=== PATIENT | female | born 1950 | race Caucasian/White ===

== ENCOUNTER 2017-01-14 10:11 | Day surgery (SDC) | payer MEDICARE, OTHER ==
[2017-01-14] MEDS ORDERED: LACTATED RINGERS 1,000 ML IV ONE (10:31)
[2017-01-14] MEDS ORDERED: CYCLOPENTOLATE 1% OPHTH DROPS 2 ML OPTH ONE (10:40)
[2017-01-14] MEDS ORDERED: KETOROLAC 0.45% OPHTH DROPS OPTH ONE (10:40)
[2017-01-14] MEDS ORDERED: TROPICAMIDE 1% OPHTH 2 ML DROPS OPTH ONE (10:40)
[2017-01-14] MEDS ORDERED: MIDAZOLAM 2 MG/2 ML VIAL IVP ONE (11:31)
[2017-01-14] MEDS ORDERED: PROPARACAINE 0.5% OPHTH DROPS 15 ML OPTH ONE (11:37)
[2017-01-14] MEDS ORDERED: BRIMONIDINE 0.2% OPHTH DROPS 5 ML OPTH ONE (11:37)
[2017-01-14] MEDS ORDERED: NEOMYCIN/POLYMYX/DEXAMETH OPHTH OINT OPTH ONE (11:38)
[2017-01-14] MEDS ORDERED: EPINEPHrine 1 MG/ML AMP IO ONE (11:38)
[2017-01-14] MEDS ORDERED: CHONDR SULF/HYALURONATE SYRINGE IO ONE (11:38)
[2017-01-14] MEDS ORDERED: BSS/LIDOCAINE/EPINEPHRINE 1 ML SYRINGE IO ONE (11:38)
[2017-01-14] MEDS ORDERED: levoFLOXacin 0.5% OPHTH DROPS 5 ML OPTH ONE (11:38)
[2017-01-14 12:25] VITALS: BP 149/95
--- NOTE | 2017-01-15 03:35 | OPERATIVE REPORT ---
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 NAME OF PROCEDURE: Phacoemulsification cataract extraction with intraocular lens implant of the right eye, clear corneal lateral approach. SURGEON: Santy Norton MD ANESTHESIA: Topical 0.5% tetracaine with monitored sedation and intracameral Shugarcaine given at the beginning of the surgical procedure. COMPLICATIONS: None. DESCRIPTION OF SURGICAL PROCEDURE: The patient was brought to the OR and, after IV and cardiac leads were placed, the patient was then prepped and draped in the usual ophthalmic manner. An adhesive pl astic drape was placed over the eye, a slit was made in the drape, and topical anesthetic was placed on the eye. A lid speculum was used to separate the eyelids and expose the eye. The eye was held se curely with the Colibri forceps. A Micro-Sharp blade was used to make a self-sealing stab wound 2 o' clock hours to the left of the planned clear corneal incision. Viscoelastic was used to fill the an terior chamber, and a crescent blade was used to make the initial vertical component of the self-seal ing clear corneal incision. A 2.75 keratome was used to complete the incision. A circular tear caps ulorrhexis was performed. The nucleus was hydrodissected, and phacoemulsification of the cataract wa s performed without complication. The I/A unit was used to remove the cortical material from the eye . The posterior capsule was polished crystal clear with the MogiMe capsule polisher, and again the I/ A unit was used to remove any loose particulate matter after polishing the capsule. Viscoelastic was used to inflate the capsular bag. An AcrySof lens was inserted into the capsular bag with the loops left at about the 3 o'clock and 9 o'clock meridians. The I/A unit was used to remove as much Viscoe lastic from the eye as possible. BSS was used to fill the anterior chamber, with the wound found to be self-sealing and water tight. Several drops of Quixin were placed on the eye. The lid speculum w as removed. A drop of brimonidine was placed on the eye. Maxitrol ointment was placed on the eye. The eye was patched and shielded, and the patient was taken to the recovery room in good condition. JOB #: [id number] EXT JOB #:[id number]
== END 2017-01-14 10:12 | disposition home or self-care (01) ==
LOC: SDS 10:11
PROVIDERS: ATTEND Specialist
PROC: 08RJ3JZ Replacement of Right Lens with Synthetic Substitute, Percutaneous Approach (ICD-10-PCS; principal; 2017-01-14 11:15)
DX: H25.811 Combined forms of age-related cataract, right eye (principal); I10 Essential (primary) hypertension
CPT/HCPCS: 66984; J7120; V2632

== ENCOUNTER 2017-05-25 14:07 | Outpatient (CLI) | payer MEDICARE, OTHER ==
[2017-05-25 14:55] LABS: BASOPHILS # (AUTO) 0.1 10^3/uL (0.0-0.1); BASOPHILS % (AUTO) 0.9 %; EOSINOPHILS # (AUTO) 0.3 10^3/uL (0.0-0.7); EOSINOPHILS % (AUTO) 3.7 %; HCT - HEMATOCRIT 38.7 % (37.0-47.0); LYMPHOCYTES # (AUTO) 2.8 10^3/uL (1.5-3.5); LYMPHOCYTES % (AUTO) 39.6 %; MEAN CORPUSCULAR HEMOGLOBIN 30.8 pg (27.0-31.0); MEAN CORPUSCULAR HGB CONC 33.5 g/dL (32.0-36.0); MEAN PLATELET VOLUME 7.3 fL (7.9-10.8); MONOCYTES # (AUTO) 0.4 10^3/uL (0.0-1.0); MONOCYTES % (AUTO) 5.8 %; NEUTROPHILS # (AUTO) 3.5 10^3/uL (1.5-6.6); RED BLOOD COUNT 4.21 10^6/uL (4.20-5.40); RED CELL DISTRIBUTION WIDTH 12.8 % (12.0-15.0)
[2017-05-25 15:01] LABS: BILIRUBIN,URINE NEGATIVE (NEGATIVE)
[2017-05-25 15:08] LABS: UA CHARGE (STRIP ONLY) YES; UR CULTURE IF IND NOT INDICATED
[2017-05-25 15:29] LABS: ALBUMIN/GLOBULIN RATIO 1.4 (1.0-2.2); BUN - BLOOD UREA NITROGEN 9 mg/dL (6-20); CALCIUM 9.6 mg/dL (8.5-10.3); CARBON DIOXIDE - CO2 26 mmol/L (21-32); CHLORIDE 94 mmol/L (101-111); CHOL/HDL RATIO 3.2 (<4.4); CHOLESTEROL 269 mg/dL; CREATININE 0.4 mg/dL (0.4-1.0); GFR - MDRD 160 (>89); GLUCOSE 86 mg/dL (70-100); HDL CHOLESTEROL 85 mg/dL; POTASSIUM 3.9 mmol/L (3.5-5.0); SODIUM 132 mmol/L (135-145); TOTAL PROTEIN 7.7 g/dL (6.7-8.2); TRIGLYCERIDES 81 mg/dL; VLDL CHOLESTEROL 16 mg/dL
[2017-05-25 15:39] LABS: HEMOGLOBIN A1C 0.53 g/dL
== END 2017-05-25 14:08 | disposition home or self-care (01) ==
LOC: LAB 14:07
PROVIDERS: ATTEND Internal Medicine
DX: I10 Essential (primary) hypertension (principal); K57.92 Diverticulitis of intestine, part unspecified, without perforation or abscess without bleeding; R73.01 Impaired fasting glucose; E78.5 Hyperlipidemia, unspecified; M85.80 Other specified disorders of bone density and structure, unspecified site; Z79.899 Other long term (current) drug therapy
CPT/HCPCS: 36415; 80053; 80061; 81001; 81003; 83036; 84443; 85025; 87086

== ENCOUNTER 2017-06-15 09:56 | Outpatient (CLI) | payer MEDICARE, OTHER ==
--- NOTE | 2017-06-16 18:40 | Mammography Report ---
DIGITAL SCREENING MAMMOGRAM: 06/15/2017 CLINICAL INDICATION: A 66-year-old with family history of breast cancer, history of benign biopsy fo r screening. TECHNIQUE: Routine CC and MLO projections were obtained of the breasts. COMPARISON: Films from [place], [place] dated 09/24/2013. FINDINGS: The breasts again demonstrate heterogeneously dense fibroglandular parenchyma bilaterally. Coarse and punctate, typically benign calcifications are present. No suspicious masses, clustered microcalcifications, or regions of architectural distortion are identified. IMPRESSION: BENIGN FINDINGS. RECOMMENDATION: Routine annual screening unless otherwise clinically indicated. BI-RADS category 2, benign findings. STANDARD QUALIFYING STATEMENTS 1. This examination was reviewed with the aid of Computer-Aided Detection (CAD). 2. A negative or benign imaging report should not delay biopsy if clinically suspicious findings are present. Consider surgical consultation if warranted. More than 5% of cancers are not identified by i maging. 3. Dense breasts may obscure an underlying neoplasm. JOB #: [id number] EXT JOB #:[id number]
== END 2017-06-15 09:57 | disposition home or self-care (01) ==
LOC: DI 09:56
PROVIDERS: ATTEND Internal Medicine
DX: Z12.31 Encounter for screening mammogram for malignant neoplasm of breast (principal); Z80.3 Family history of malignant neoplasm of breast
CPT/HCPCS: 77067

== ENCOUNTER 2018-12-11 07:21 | Outpatient (CLI) | payer MEDICARE, OTHER ==
--- NOTE | 2018-12-12 16:52 | MRI Report ---
Reason: SHOULDER JOINT PAIN, LEFT Procedure Date: 12/11/2018 Accession Number: [id number] / [id number] Procedure: MRI - Shoulder LT W/O CPT Code: FULL RESULT: EXAM: LEFT SHOULDER MRI WITHOUT CONTRAST. EXAM DATE: 12/11/2018 08:16 AM. CLINICAL HISTORY: Shoulder joint pain, left. COMPARISON: None. TECHNIQUE: Multiplanar, multisequence T1-weighted and fluid-sensitive sequences of the shoulder without contrast. Other: None. FINDINGS: Acromioclavicular Region: The acromion is type II. AC joint is moderately osteoarthritic. The coracoacromial and coracoclavicular ligaments are intact. Large amount of bursal fluid. Glenohumeral Region: Superior subluxation of the humeral head with respect to the bony glenoid and pseudoarticulation with the undersurface of the acromion. Series 901 image 10. Glenohumeral joint effusion. Numerous loose bodies in the joint. Broad areas of grade IV chondromalacia in the superior half of the glenohumeral joint. Joint capsule appears intact. Bone Marrow: Some marginal arthrosis at the inferior margin of the glenohumeral articulation. No marrow edema or stress reaction, no fractures. Labrum: The labrum is unremarkable on this nonarthrographic study. Musculature/Rotator Cuff: Full thickness tear and proximal retraction of the supraspinatus, infraspinatus and the superior half of the subscapularis. Teres minor is hypertrophic and remains intact. Extensive fatty atrophy of the supraspinatus, infraspinatus and superior half of the subscapularis. Biceps Tendon: Long head of the biceps has subluxed into the medial aspect of the joint, its attachment to the superior glenoid is difficult to assess. Other: The subcutaneous tissues are unremarkable. IMPRESSION: 1. Long-standing full thickness tear with proximal retraction and fatty atrophy of the supraspinatus, infraspinatus and severe 50% of the subscapularis. Resulting superior subluxation of the humeral head with respect to the bony glenoid. Pseudoarticulation with the undersurface of the acromion. Broad areas of grade IV chondromalacia superior half of the glenohumeral joint. Large joint effusion, innumerable small loose bodies. Large amount of fluid in the bursa also noted. 2. Long head of biceps is subluxed into the medial aspect of the joint, attachment point difficult to assess. RADIA
== END 2018-12-11 07:22 | disposition home or self-care (01) ==
LOC: DI 07:21
PROVIDERS: ATTEND Orthopaedic Surgery Sports Medicine
DX: S43.002A Unspecified subluxation of left shoulder joint, initial encounter (principal); M75.102 Unspecified rotator cuff tear or rupture of left shoulder, not specified as traumatic; S43.492A Other sprain of left shoulder joint, initial encounter; M94.212 Chondromalacia, left shoulder; M24.012 Loose body in left shoulder; M25.412 Effusion, left shoulder

== ENCOUNTER 2018-12-24 11:00 | Outpatient (CLI) | payer MEDICARE, OTHER ==
[2018-12-24] MEDS ORDERED: IOTHALAMATE MEGLUMINE 50 ML VIAL ONE ×2 (11:16→11:18)
[2018-12-24] MEDS ORDERED: BUFFERED LIDOCAINE 10 ML SYRINGE ONE (11:19)
[2018-12-24] MEDS ORDERED: TRIAMCINOLONE 40 MG/ML VIAL IM ONE (13:16)
[2018-12-24] MEDS ORDERED: IOTHALAMATE MEGLUMINE 50 ML VIAL IVP ONE (13:16)
[2018-12-24] MEDS ORDERED: ROPIVACAINE 0.2% PF 20 ML AMPULE SUBQ ONE (13:16)
--- NOTE | 2018-12-24 14:34 | XRAY Report ---
Reason: SHOULDER JOINT PAIN,LEFT Procedure Date: 12/24/2018 Accession Number: [id number] / [id number] Procedure: FL - Inj/Aspiration Major Joint CPT Code: FULL RESULT: EXAM: LEFT SHOULDER STEROID INJECTION WITH FLUOROSCOPIC GUIDANCE EXAM DATE: 12/24/2018 12:08 PM. CLINICAL HISTORY: Shoulder joint pain, left. COMPARISON: None. TECHNIQUE: The risks, benefits, and alternatives of the procedure were discussed with the patient. All questions were answered. Written and verbal consent were obtained. The glenohumeral joint was marked under fluoroscopy and prepped and draped in a sterile manner. Local anesthesia was performed with 1% lidocaine. A 22-gauge needle was then inserted into the glenohumeral joint. 5 mL of a solution containing 1 mL of triamcinolone 40 mg, 4 mL ropivacaine 0.05% was then injected. The needle was removed without immediate complication. Other: None. Fluoroscopy Time: 5 seconds. Number of Images: 4. FINDINGS: Bones and joints: No fracture or subluxation. Injection: Fluoroscopic images demonstrate needle placement and contrast in the glenohumeral joint. No contrast extravasation outside of the glenohumeral joint. IMPRESSION: Successful fluoroscopically-guided steroid injection of the shoulder. RADIA
== END 2018-12-24 11:01 | disposition home or self-care (01) ==
LOC: DI 11:00
PROVIDERS: ATTEND Orthopaedic Surgery Sports Medicine
DX: M25.512 Pain in left shoulder (principal)
CPT/HCPCS: 20610; Q9961

== ENCOUNTER 2019-11-02 10:16 | Outpatient (CLI) | payer MEDICARE, OTHER ==
--- NOTE | 2019-11-02 16:36 | XRAY Report ---
Reason: COUGH Procedure Date: 11/02/2019 Accession Number: [id number] / [id number] Procedure: XR - Chest 2 View X-Ray CPT Code: 72156 Final Report FULL RESULT: EXAM: CHEST RADIOGRAPHY EXAM DATE: 11/02/2019 10:41 AM. CLINICAL HISTORY: Cough. COMPARISON: None. TECHNIQUE: 2 views. FINDINGS: Lungs/Pleura: No focal opacities evident. There is a small right pleural effusion, no effusion on the left. No pneumothorax. High lung volumes with increased AP diameter and flattening of diaphragms. Mediastinum: Heart and mediastinal contours are unremarkable. Other: Rib deformities with callus formation identified on the right, prior rib fractures, possibly subacute. Surgical clips are seen in the right neck with bone anchors seen in the right humeral head. IMPRESSION: Small right pleural effusion and right-sided rib fractures with some evidence of healing, possibly subacute trauma. RADIA
== END 2019-11-02 10:17 | disposition home or self-care (01) ==
LOC: DI 10:16
PROVIDERS: ATTEND Internal Medicine
DX: R05 Cough (principal); J90 Pleural effusion, not elsewhere classified
CPT/HCPCS: 71046

== ENCOUNTER 2019-12-05 08:01 | Outpatient (CLI) | payer MEDICARE, OTHER ==
--- NOTE | 2019-12-05 08:23 | XRAY Report ---
Reason: COUGH, PLEURAL EFFUSION Procedure Date: 12/05/2019 Accession Number: [id number] / [id number] Procedure: XR - Chest 2 View X-Ray CPT Code: 80851 Final Report FULL RESULT: EXAM: CHEST RADIOGRAPHY EXAM DATE: 12/05/2019 08:17 AM. CLINICAL HISTORY: COUGH, PLEURAL EFFUSION. COMPARISON: CHEST 2 VIEW 11/02/2019 10:30 AM. TECHNIQUE: 2 views. FINDINGS: Lungs/Pleura: Tiny right pleural effusion and minimal lateral right basilar airspace opacity seen before have resolved. Lungs now are clear. No peribronchial cuffing or interstitial abnormality. No pneumothorax. Mediastinum: Heart and mediastinal contours are unremarkable. Other: Suggestion of prior posterior lateral right eighth rib fracture, as before. Moderate multilevel thoracic degenerative disk disease. Tendon anchors in the right humeral head, as before. IMPRESSION: Lungs are clear. Minimal lateral right basilar airspace opacity and tiny right pleural effusion seen before have resolved. RADIA
== END 2019-12-05 08:02 | disposition home or self-care (01) ==
LOC: DI 08:01
PROVIDERS: ATTEND Internal Medicine
DX: R05 Cough (principal)
CPT/HCPCS: 71046

== ENCOUNTER 2020-02-07 12:09 | Outpatient (CLI) | payer MEDICARE, OTHER ==
--- NOTE | 2020-02-07 12:48 | XRAY Report ---
Reason: CHONDROMALACIA PATELLAE, LEFT KNEE Procedure Date: 02/07/2020 Accession Number: [id number] / [id number] Procedure: XR - Knee 3 View LT CPT Code: Final Report FULL RESULT: PROCEDURE: Knee 3 View LT INDICATIONS: CHONDROMALACIA PATELLAE, LEFT KNEE TECHNIQUE: 3 views of the knee(s) were acquired. COMPARISON: None. FINDINGS: Bones: Moderate right and severe left medial femorotibial compartment narrowing. There are left tricompartmental osteophytes and small right intercondylar osteophytes. Soft tissues: No joint effusion. No suspicious soft tissue calcifications. 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 Reviewed by: Michelle Interiano MD on 02/07/2020 12:47 PM PDT Approved by: Michelle Interiano MD on 02/07/2020 12:47 PM PDT Station ID: [id number]
== END 2020-02-07 12:10 | disposition home or self-care (01) ==
LOC: DI 12:09
PROVIDERS: ATTEND Orthopaedic Surgery
DX: M17.0 Bilateral primary osteoarthritis of knee (principal)

== ENCOUNTER 2020-02-10 10:18 | Outpatient (CLI) | payer MEDICARE, OTHER | END 2020-02-10 10:19 | disposition home or self-care (01) | LOC: DI 10:18 | PROVIDERS: ATTEND Internal Medicine | DX: I11.9 Hypertensive heart disease without heart failure (principal) | CPT/HCPCS: 93306 ==

== ENCOUNTER 2022-02-27 08:00 | Outpatient (CLI) | payer MEDICARE, OTHER ==
[2022-02-27 16:16] LABS: BASOPHILS # (AUTO) 0.1 10^3/uL (0.0-0.1); BASOPHILS % (AUTO) 1.4 %; EOSINOPHILS # (AUTO) 0.1 10^3/uL (0.0-0.7); EOSINOPHILS % (AUTO) 1.8 %; HCT - HEMATOCRIT 41.9 % (37.0-47.0); HGB - HEMOGLOBIN 13.1 g/dL (12.0-16.0); LYMPHOCYTES # (AUTO) 2.1 10^3/uL (1.5-3.5); LYMPHOCYTES % (AUTO) 37.5 %; MEAN CORPUSCULAR HEMOGLOBIN 28.5 pg (27.0-31.0); MEAN CORPUSCULAR HGB CONC 31.3 g/dL (32.0-36.0); MEAN CORPUSCULAR VOLUME 91.1 fL (81.0-99.0); MEAN PLATELET VOLUME 9.8 fL (7.9-10.8); MONOCYTES # (AUTO) 0.5 10^3/uL (0.0-1.0); MONOCYTES % (AUTO) 8.2 %; NEUTROPHILS # (AUTO) 2.8 10^3/uL (1.5-6.6); NEUTROPHILS % (AUTO) 50.9 %; PLT - PLATELET COUNT 264 10^3/uL (130-450); RED CELL DISTRIBUTION WIDTH 13.5 % (12.0-15.0); WHITE BLOOD COUNT 5.6 x10^3/uL (4.8-10.8)
[2022-02-27 16:29] LABS: ALBUMIN 4.8 g/dL (3.2-5.5); ALBUMIN/GLOBULIN RATIO 1.5 (1.0-2.2); ALKALINE PHOSPHATASE 96 IU/L (42-121); ALT ALANINE AMINOTRANSFERASE 17 IU/L (10-60); AST ASPARTATE AMINOTRANSFERASE 24 IU/L (10-42); BILIRUBIN,TOTAL 0.7 mg/dL (0.2-1.0); BUN - BLOOD UREA NITROGEN 10 mg/dL (6-20); CALCIUM 9.9 mg/dL (8.5-10.3); CARBON DIOXIDE - CO2 29 mmol/L (21-32); CHLORIDE 98 mmol/L (101-111); CHOLESTEROL 249 mg/dL; CREATININE 0.6 mg/dL (0.4-1.0); GFR - MDRD 99 (>89); GLUCOSE 98 mg/dL (70-100); HDL CHOLESTEROL 83 mg/dL; LDL CHOLESTEROL,CALCULATED 147 mg/dL; LDL/HDL RATIO 1.8 (<4.4); POTASSIUM 4.6 mmol/L (3.5-5.0); SODIUM 136 mmol/L (135-145); TOTAL PROTEIN 8.1 g/dL (6.7-8.2); TRIGLYCERIDES 94 mg/dL; VLDL CHOLESTEROL 19 mg/dL
[2022-02-27 20:17] LABS: ESTIMATED AVERAGE GLUCOSE 117 mg/dL (70-100); HEMOGLOBIN A1c% 5.7 % (4.27-6.07)
== END 2022-02-27 23:59 | disposition home or self-care (01) ==
LOC: LAB.R 08:00
PROVIDERS: ATTEND Internal Medicine
DX: Z00.00 Encounter for general adult medical examination without abnormal findings (principal); F32.A Depression, unspecified; H40.9 Unspecified glaucoma; E78.5 Hyperlipidemia, unspecified; I10 Essential (primary) hypertension; R73.01 Impaired fasting glucose; M85.80 Other specified disorders of bone density and structure, unspecified site; C80.1 Malignant (primary) neoplasm, unspecified; Z79.899 Other long term (current) drug therapy; I49.3 Ventricular premature depolarization
CPT/HCPCS: 80053; 80061; 83036; 83721; 84443; 85025

== ENCOUNTER 2023-10-15 09:51 | Emergency (ER) | payer MEDICARE, OTHER ==
--- NOTE | 2023-10-15 11:14 | ED Physician Documentation ---
PD HPI HEAD INJURY - Stated complaint Stated Complaint: GLF/HEAD INJ/DIZZY - Chief complaint Chief Complaint: Trauma Hd/Nk - History obtained from History obtained from: Patient - History of Present Illness Mechanism of head injury: Fell Where head injury occurred: Home Timing - onset: Yesterday (she was getting out of car, having just returned from shopping with . She does not remeber why fell. The says he heard her fall as he was on his side of car. He went around to passenger side and pt was awake but confused. This improved after minutes but not fully. Pt still sluggish.) Associated symptoms: AMS, Amnesia (of the fall and the next hour or so of time.), Nausea / vomiting. No: LOC Symptoms worsen with: Palpation (has tender area right parietal and yazidism area. Having increased area of purple eccchymosis today.) Contributing factors: No: Anticoagulated Similar symptoms before: Has not had sx before Review of Systems Constitutional: denies: Fever, Chills Eyes: denies: Loss of vision, Photophobia Neurologic: reports: Headache. denies: Focal weakness, Numbness, Altered mental status PD PAST MEDICAL HISTORY - Past Medical History Past Medical History: Yes Cardiovascular: Hypertension, Murmur Respiratory: None Neuro: Head injury, Other Endocrine/Autoimmune: None GI: Diverticulitis : None HEENT: None Psych: None Musculoskeletal: None Derm: None - Past Surgical History Past Surgical History: Yes General: Colonoscopy, Other Ortho: Knee replacement HEENT: Tracheostomy - Present Medications Home Medications: Ambulatory Orders Medication Instructions Recorded Confirmed Latanoprost/Pf [Latanoprost 0.005% 1 drops OP HS 04/07/22 10/15/23 Eye Drop] amLODIPine [Norvasc] 5 mg PO DAILY 04/07/22 10/15/23 - Allergies Allergies/Adverse Reactions: Allergies Allergy/AdvReac Type Severity Reaction Status Date / Time ampicillin Allergy Rash Verified 10/15/23 10:21 - Social History Does the pt smoke?: No Smoking Status: Never smoker Does the pt drink ETOH?: Yes ETOH Use: Wine Does the pt have substance abuse?: No - Immunizations Immunizations are current?: Yes PD ED PE NORMAL - Vitals Vital signs reviewed: Yes - General General: Alert and oriented X 3, No acute distress, Well developed/nourished - HEENT HEENT: Pharynx benign - Neck Neck: Supple, no meningeal sign, No adenopathy - Cardiac Cardiac: RRR, No murmur - Respiratory Respiratory: No respiratory distress - Neuro Neuro: Alert and oriented X 3, 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, No motor deficit, No sensory deficit, Normal speech, Other Results - Vitals Vitals: Vital Signs - 24 hr 10/15/23 10/15/23 10/15/23 10:13 12:21 13:38 Temperature 36.0 C L Heart Rate 79 78 90 Respiratory 17 13 21 Rate Blood Pressure 139/98 H 121/92 H 129/81 H O2 Saturation 99 95 98 10/15/23 13:58 Temperature Heart Rate 88 Respiratory 15 Rate Blood Pressure 129/81 H O2 Saturation 95 Oxygen O2 Source Room air - Rads (name of study) head CT Relevant Findings:: Prelim report reviewed, EMP independent interpretation of test PD Medical Decision Making - ED course Complexity details: reviewed results (no ICH nor acute process. Her story was of striking head during a fall and having ARELLANO and some blurred visoion. The concern would be acute bleed, so got CT head. This was without acute findings. ), considered differential (fell and struck head. Confused feeling and headache, wants to be sure no serious injuries. Her symptoms certainly can be c/w concussion. ), d/w patient, d/w family (spouse) Departure - Departure Disposition: 01 Home, Self Care Clinical Impression: Scalp contusion, Concussion Condition: Stable Record reviewed to determine appropriate education?: Yes Instructions: ED Concussion Follow-Up: France Dutta MD [Primary Care Provider] - Comments: Stay well-hydrated. Continue usual medicines. Your head CT scan does not show any signs of bleeding nor any localized swelling, mass effect or tumors. I presume your symptoms relate to a concussion since you do have had them after falling and hitting your head. It can be quite variable how long it takes for the symptoms to resolve. It can be several days to several weeks or more. Activity as tolerated. Tylenol 500 to 650 mg every 6 4 times a day regularly to begin with to help with headache. Then as needed. Recheck if not improved over the next week or so with your primary care. Forms: PCP List Discharge Date/Time: 10/15/23 14:37
[2023-10-15 13:40] VITALS: BP 129/81
--- NOTE | 2023-10-15 13:42 | CT Report ---
PROCEDURE: Head WO INDICATIONS: fall, scalp contusion, off balance/confused TECHNIQUE: Noncontrast 4.5 mm thick angled axial sections acquired from the foramen magnum to the vertex. For r adiation dose reduction, the following was used: automated exposure control, adjustment of mA and/or kV according to patient size. COMPARISON: None. FINDINGS: Image quality: Diagnostic. CSF spaces: Basal cisterns are patent. No extra-axial fluid collections. Ventricles are normal in size and shape. Brain: No midline shift. No intracranial masses or hemorrhage. No mass effect. Renner-white matter i nterface is normal. There cerebral volume loss for age with resultant ventricular and sulcal prominen ce. There are periventricular and deep white matter chronic small vessel ischemic changes. Atheroscle rotic calcifications are noted in the intracranial segments of the bilateral internal carotid arterie s. Skull and face: Chronic postsurgical changes of the left calvarium. There is a likely vishnu hole invol ving the right parietal bones. No acute calvarial fractures. Visualized facial bones are intact, with out suspicious lesions. Right frontal scalp contusion without underlying fracture. Sinuses: Visualized sinuses and mastoids are clear. IMPRESSION: No acute intracranial pathology. Age-related senescent changes and sequela of chronic small vessel is chemic disease. Right frontal scalp contusion without underlying calvarial fractures. Reviewed by: Dejon Espana MD on 10/15/2023 1:41 PM PST Approved by: Dejon Espana MD on 10/15/2023 1:41 PM PST Station ID: [id number]
[2023-10-15 13:59] VITALS: O2SAT 95
== END 2023-10-15 14:37 | disposition home or self-care (01) ==
LOC: ED 09:51
DX: S09.90XA Unspecified injury of head, initial encounter (principal); W19.XXXA Unspecified fall, initial encounter; I10 Essential (primary) hypertension
CPT/HCPCS: 99284

== ENCOUNTER 2023-11-10 09:30 | Outpatient (CLI) | payer MEDICARE, OTHER ==
--- NOTE | 2023-11-10 12:31 | MRI Report ---
PROCEDURE: Brain WO INDICATIONS: BALANCE IMPAIRMENT TECHNIQUE: Noncontrast axial T1 spin echo, axial T2 fast spin echo, sagittal and axial FLAIR, coronal T2 fast sp in echo, axial gradient echo, axial diffusion and ADC through the brain. COMPARISON: CT head 10/15/2023. FINDINGS: Image quality: Excellent. CSF Spaces: Basal cisterns are patent. No extra-axial fluid collections. Ventricles are normal in size and shape. Brain: No intracranial masses or hemorrhage. Renner/white matter interface is normal. Age-related sae bal volume loss and chronic microvascular ischemic changes. Brainstem appears normal. Diffusion-weig hted images demonstrate no acute ischemic insult. No chronic ischemic insults. Normal intravascular flow voids are present. Focus of susceptibility artifact within the right occipital lobe, likely se quela of prior chronic hypertensive microhemorrhage. Skull and face: Calvarium has normal marrow signal. Bilateral lens replacements. The orbits are oth erwise normal in appearance. Sinuses: Sinuses and mastoids are clear. IMPRESSION: 1.No cause for patient's symptoms is identified. 2.No acute intracranial abnormalities. 3.Age-related global volume loss and chronic microvascular ischemic change. Reviewed by: Rudolph Eddy MD on 11/10/2023 12:29 PM PDT Approved by: Rudolph Eddy MD on 11/10/2023 12:29 PM PDT Station ID: [id number]
== END 2023-11-10 09:31 | disposition home or self-care (01) ==
LOC: DI 09:30
PROVIDERS: ATTEND Internal Medicine
DX: R26.89 Other abnormalities of gait and mobility (principal); H57.02 Anisocoria

== ENCOUNTER 2023-12-02 09:32 | Outpatient (CLI) | payer MEDICARE, OTHER ==
--- NOTE | 2023-12-02 14:54 | XRAY Report ---
PROCEDURE: Foot 3+V RT (Weight Bearing) INDICATIONS: PAIN IN R 4TH DIGIT TECHNIQUE: 3 views of the foot were acquired. COMPARISON: None. FINDINGS: Bones: Minimally displaced fracture of the 4th proximal phalangeal head seen on AP view only. No david tional osseous fracture is seen. Degenerative changes are seen in the interphalangeal joints of the t oes. Multiple hammertoe deformities are noted. Small plantar calcaneal enthesophyte. Soft tissues: Surgical clips are seen at the anteromedial ankle. Soft tissue edema is seen in the 4th toe. IMPRESSION: Minimally displaced fracture of the 4th proximal phalangeal head. Reviewed by: Foster Call MD on 12/02/2023 2:52 PM PDT Approved by: Foster Call MD on 12/02/2023 2:52 PM PDT Station ID: [id number]
== END 2023-12-02 09:33 | disposition home or self-care (01) ==
LOC: DI 09:32
PROVIDERS: ATTEND Podiatrist
DX: S92.511A Displaced fracture of proximal phalanx of right lesser toe(s), initial encounter for closed fracture (principal)

== ENCOUNTER 2024-03-24 11:02 | Outpatient (CLI) | payer MEDICARE, OTHER ==
[2024-03-24 11:20] LABS: BASOPHILS # (AUTO) 0.1 10^3/uL (0.0-0.1); EOSINOPHILS # (AUTO) 0.2 10^3/uL (0.0-0.7); EOSINOPHILS % (AUTO) 2.5 %; HCT - HEMATOCRIT 44.5 % (37.0-47.0); HGB - HEMOGLOBIN 13.9 g/dL (12.0-16.0); LYMPHOCYTES # (AUTO) 3.1 10^3/uL (1.5-3.5); LYMPHOCYTES % (AUTO) 44.8 %; MEAN CORPUSCULAR HEMOGLOBIN 29.3 pg (27.0-31.0); MEAN CORPUSCULAR HGB CONC 31.2 g/dL (32.0-36.0); MEAN CORPUSCULAR VOLUME 93.7 fL (81.0-99.0); MEAN PLATELET VOLUME 9.2 fL (7.9-10.8); MONOCYTES # (AUTO) 0.5 10^3/uL (0.0-1.0); MONOCYTES % (AUTO) 7.2 %; NEUTROPHILS % (AUTO) 44.4 %; PLT - PLATELET COUNT 270 10^3/uL (130-450); RED BLOOD COUNT 4.75 10^6/uL (4.20-5.40); RED CELL DISTRIBUTION WIDTH 13.2 % (12.0-15.0); WHITE BLOOD COUNT 6.9 x10^3/uL (4.8-10.8)
[2024-03-24 11:31] LABS: ALBUMIN 4.9 g/dL (3.2-5.5); ALBUMIN/GLOBULIN RATIO 1.6 (1.0-2.2); ALKALINE PHOSPHATASE 100 IU/L (42-121); ALT ALANINE AMINOTRANSFERASE 14 IU/L (10-60); AST ASPARTATE AMINOTRANSFERASE 21 IU/L (10-42); BILIRUBIN,TOTAL 0.7 mg/dL (0.2-1.0); BUN - BLOOD UREA NITROGEN 7 mg/dL (6-20); CALCIUM 10.3 mg/dL (8.5-10.3); CARBON DIOXIDE - CO2 31 mmol/L (21-32); CHLORIDE 98 mmol/L (101-111); CHOL/HDL RATIO 2.9 (<4.4); CHOLESTEROL 246 mg/dL; CREATININE 0.5 mg/dL (0.6-1.3); GFR - MDRD 121 (>89); GLUCOSE 106 mg/dL (74-104); HDL CHOLESTEROL 85 mg/dL; LDL CHOLESTEROL,CALCULATED 141 mg/dL; LDL/HDL RATIO 1.7 (<4.4); MAGNESIUM 1.7 mg/dL (1.7-2.3); POTASSIUM 4.4 mmol/L (3.5-4.5); SODIUM 135 mmol/L (135-145); TRIGLYCERIDES 102 mg/dL; VLDL CHOLESTEROL 20 mg/dL
[2024-03-24 11:44] LABS: THYROID STIMULATING HORMONE 2.29 uIU/mL (0.34-5.60)
[2024-03-24 12:30] LABS: ESTIMATED AVERAGE GLUCOSE 117 mg/dL (70-100); HEMOGLOBIN A1c% 5.7 % (4.27-6.07)
== END 2024-03-24 11:03 | disposition home or self-care (01) ==
LOC: LAB 11:02
PROVIDERS: ATTEND Internal Medicine
DX: Z00.00 Encounter for general adult medical examination without abnormal findings (principal); I10 Essential (primary) hypertension; R73.01 Impaired fasting glucose; E78.5 Hyperlipidemia, unspecified; G47.62 Sleep related leg cramps; F32.A Depression, unspecified
CPT/HCPCS: 36415; 80053; 80061; 83036; 83721; 83735; 84443; 85025